=== PATIENT | female | born 1940 | race Caucasian/White ===

== ENCOUNTER 2018-10-15 10:10 | Emergency (ER) | payer MEDICARE, OTHER ==
[~2018-10-15] VITALS: Ht 152.4 cm; Wt 96.6 kg
[~2018-10-15 10:10] MED LIST: AZITHROMYCIN 2250 MG PO; CEFPODOXIME PR200 M1 PO; CELEBREX 200 M200 M1 PO; CIPRO500 MG PO; IBUPROFEN 600600 M1 PO; LEVOTHYROXINE0.05 MG PO; MAGNESIUM OXID200 MG PO; MECLIZINE HCL12.5 MG PO; MUCINEX600 MG PO; POTASSIUM20; PRINIVIL20 MG PO; PROVENTIL HFA6.7 G1 INH; TRAMADOL 50 MG50 MG PO
[2018-10-15 11:09] LABS: ABSOLUTE BASOPHILS 0.1 thou/uL (0.0-0.2); ABSOLUTE EOSINOPHILS 0.3 thou/uL (0.0-0.7); ABSOLUTE LYMPHOCYTES 2.6 thou/uL (0.8-5.3); ABSOLUTE MONOCYTES 0.7 thou/uL (0.0-1.2); ABSOLUTE NEUTROPHILS 2.9 thou/uL (1.6-8.1); BASOPHILS 1.6 %; EOSINOPHILS 5.2 %; HEMATOCRIT 36.9 % (37.0-47.0); HEMOGLOBIN 12.5 gm/dL (12.0-15.0); LYMPHOCYTES 39.6 %; MCH 30.4 pg (26.0-34.0); MCHC 33.9 g/dL (28.0-37.0); MCV 89.8 fL (80.0-100.0); MONOCYTES 10.3 %; MPV 8.3 fl. (7.2-11.1); NUCLEATED RBCS 0 /100WBC; PLATELET COUNT* 268 thou/uL (150-400); POLYS 43.3 %; RBC 4.11 mil/uL (4.20-5.00); RDW-CV 14.7 % (10.5-14.5); WBC 6.7 thou/uL (4.0-11.0)
[2018-10-15 11:16] LABS: ANION GAP 6 mmol/L (7-16); BUN 15 mg/dL (7-18); CALCIUM 8.9 mg/dL (8.5-10.1); CHLORIDE 109 mmol/L (98-107); CO2 27 mmol/L (21-32); GLUCOSE 89 mg/dL (70-99); POTASSIUM 4.1 mmol/L (3.5-5.1); SODIUM 142 mmol/L (136-145)
[2018-10-15 11:22] LABS: ALBUMIN 3.1 g/dL (3.4-5.0); ALKALINE PHOSPHATASE 78 U/L (46-116); LIPASE 77 U/L (73-393); SGOT 18 U/L (15-37); SGPT 16 U/L (30-65); TOTAL BILIRUBIN 0.4 mg/dL (<0.1-1.0); TROPONIN-I LEVEL <0.06 ng/mL (<0.06)
[2018-10-15 12:08] LABS: URINE BILIRUBIN NEGATIVE (Negative); URINE BLOOD NEGATIVE (Negative); URINE CLARITY CLEAR; URINE COLOR YELLOW; URINE GLUCOSE-RANDOM NEGATIVE (Negative); URINE KETONES NEGATIVE (Negative); URINE LEUKOCYTES-REFLEX NEGATIVE (Negative); URINE NITRITE-REFLEX NEGATIVE (Negative); URINE PROTEIN NEGATIVE (Negative); URINE UROBILINOGEN 0.2 E.U./dl (0.2-1.0)
[2018-10-15] MEDS ORDERED: COLACE 100 MG100 MG PO (12:09)
[2018-10-15] MEDS ORDERED: TRAMADOL 50 MG50 MG PO (12:09)
[2018-10-15 13:00] VITALS: BP 177/66
--- NOTE | 2018-10-15 15:04 | EKG ---
[place] [address] ELECTROCARDIOGRAM REPORT Name: BENJA ARENAS [id number] Admission: 10/15/18 Attend Phys: Discharge: 10/15/18 Date of : 40 Report #: [id number] THIS REPORT FOR: //name// [facility] ED Test Date: 2018-10-15 Test Time: 10:51:51 Pat Name: BENJA ARENAS Department: Room: Gender: F Offset Press Assistant: MARLEN : 1940 Requested By: Ash Whelan Order Number: [id number] MD: Singh Wright Measurements Intervals [place] Rate: 69 P: 58 [place]: 159 QRS: 36 QRSD: 79 T: 21 QT: 386 QTc: 414 Interpretive Statements Sinus rhythm Probable left atrial enlargement Compared to ECG 01/31/2012 08:24:38 No significant changes Electronically Signed On 10-15-2018 15:03:54 RUG DYER by Singh Wright [email or web address] <ELECTRONICALLY SIGNED> By: Singh Wright MD, [facility] 10/15/18 1503 1051 1051 Singh Wright MD, FACC /EPI
== END 2018-10-15 13:00 | disposition home or self-care (01) ==
LOC: M.ERS 10:10
PROVIDERS: Emergency Medicine
DX: S31.113A Laceration without foreign body of abdominal wall, right lower quadrant without penetration into peritoneal cavity, initial encounter (principal); I10 Essential (primary) hypertension; E03.9 Hypothyroidism, unspecified; Z96.653 Presence of artificial knee joint, bilateral; Z88.5 Allergy status to narcotic agent; Z90.710 Acquired absence of both cervix and uterus; Z90.49 Acquired absence of other specified parts of digestive tract; X58.XXXA Exposure to other specified factors, initial encounter; Y93.89 Activity, other specified; Y92.89 Other specified places as the place of occurrence of the external cause; Y99.8 Other external cause status